=== PATIENT | female | born 1990 | race African-American/Black ===

== ENCOUNTER 2022-09-19 13:34 | Outpatient (CLI) | payer OTHER, SELFPAY ==
[2022-09-19 14:35] LABS: Beta HCG Quantitative < 2.39 mIU/ML
== END 2022-09-19 13:35 | disposition home or self-care (01) ==
LOC: ANHLAB 13:36
PROVIDERS: Visit Provider Student in an Organized Health Care Education/Training Program
DX: N93.9 Abnormal uterine and vaginal bleeding, unspecified (principal)
CPT/HCPCS: 36415; 84702